=== PATIENT | female | born 1995 | race Caucasian/White ===

== ENCOUNTER 2018-01-15 12:09 | Emergency (ER) | payer OTHER ==
[~2018-01-15] VITALS: Ht 154.9 cm; Wt 52.6 kg
[2018-01-15 12:23] VITALS: Ht 154.9 cm; Wt 52.6 kg
[2018-01-15 13:10] LABS: BASOPHIL % 0.3 % (0-2); CALCIUM 8.2 mg/dL (8.5-10.1); CARBON DIOXIDE 23.9 mmol/L (21-32); CHLORIDE SERUM 102 mmol/L (98-107); CREATININE SERUM 0.5 mg/dL (0.6-1.0); GFR1 > 60 mL/min; GLUCOSE SERUM 81 mg/dL (74-106); PLATELET COUNT 130 x10^3mcL (130-400); POTASSIUM SERUM 3.6 mmol/L (3.5-5.1); RED CELL DISTRIBUTION WIDTH 13.6 % (11.5-14.5); SODIUM SERUM 133 mmol/L (136-145)
[2018-01-15 13:17] LABS: ALKALINE PHOSPHATASE 72 U/L (46-116); ALT/SGPT 53 U/L (14-59); AST/SGOT 34 U/L (15-37); BILIRUBIN TOTAL 0.27 mg/dL (0.20-1.00); TOTAL PROTEIN, SERUM 6.9 g/dL (6.4-8.2)
[2018-01-15 14:20] VITALS: BP 108/60
== END 2018-01-15 14:20 | disposition home or self-care (01) ==
LOC: ED 12:09
PROVIDERS: Emergency Medicine
DX: O26.893 Other specified pregnancy related conditions, third trimester (principal); R10.30 Lower abdominal pain, unspecified; M54.41 Lumbago with sciatica, right side; Z3A.28 28 weeks gestation of pregnancy
CPT/HCPCS: 36415; 36600